=== PATIENT | female | born 1940 | race American Indian/Alaskan Native ===

== ENCOUNTER 2016-12-22 02:05 | Inpatient (IN) | payer MEDICARE ==
[2016-12-22 03:16] LABS: Urine Drugs of Abuse Note Disclamer
[2016-12-22 03:24] LABS: Bilirubin,Urine NEG (Negative); Blood,Urine NEG (Negative); Ketones,Urine TR mg/dL (Negative); Leukocyte Esterase,Urine NEG (Negative); Mucus,Urine FEW /HPF; Nitrite,Urine NEG (Negative); Urobilinogen,Urine < 2.0 mg/dL (<2.0)
[2016-12-22 04:01] LABS: Alanine Aminotransferase 25 units/L (7-56); Albumin 4.3 g/dL (3.9-5); Albumin/Globulin Ratio 1.1 %; Alkaline Phosphatase 69 units/L (35-129); Anion Gap 16 mmol/L; Blood Urea Nitrogen 22 mg/dL (7-17); Calcium 9.1 mg/dL (8.4-10.2); Carbon Dioxide 26 mmol/L (22-30); Chloride 102.3 mmol/L (98-107); Glucose 121 mg/dL (65-100); Sodium 141 mmol/L (137-145); Total Protein 8.2 g/dL (6.3-8.2)
[2016-12-22 04:09] LABS: Potassium 2.9 mmol/L (3.6-5.0)
[2016-12-22 04:17] LABS: Basophils % (Auto) 0.8 % (0.0-1.8); Eosinophils % (Auto) 2.1 % (0.0-4.3); Hematocrit 37.8 % (30.3-42.9); Hemoglobin 12.5 gm/dl (10.1-14.3); Mean Corpuscular HGB Conc 33 % (30-34); Mean Corpuscular Hemoglobin 30 pg (28-32); Mean Corpuscular Volume 89 fl (79-97); Platelet Count 280 K/mm3 (140-440); Red Blood Count 4.23 M/mm3 (3.65-5.03); Red Cell Distribution Width 15.8 % (13.2-15.2); White Blood Count 5.8 K/mm3 (4.5-11.0)
--- NOTE | 2016-12-22 04:19 | Cat Scan Report ---
FINAL REPORT PROCEDURE: CT HEAD/BRAIN WO CON TECHNIQUE: Computerized tomography of the head was performed without contrast material. HISTORY: ams COMPARISON: No prior studies are available for comparison. FINDINGS: Skull and scalp: Normal. Paranasal sinuses: Normal. Ventricles and subarachnoid spaces: There is mild central and cortical atrophy. There is no hydrocephalus.. Cerebrum: No evidence of hemorrhage, acute infarction or mass . Cerebellum and brainstem: No evidence of hemorrhage, acute infarction or mass. Vasculature: Normal. Comments: There is chronic deep white matter ischemic gliosis.. IMPRESSION: There are chronic involutional changes. There is no acute abnormality.
--- NOTE | 2016-12-22 06:23 | Emergency Department Report ---
ED General Adult HPI - General Chief complaint: Altered Mental Status Stated complaint: TC THOMPSON Time Seen by Provider: 12/22/16 06:20 Source: patient Mode of arrival: Ambulatory Limitations: Altered Mental Status - History of Present Illness Initial comments: As I understand it the patient was dropped off by her son for evaluation. The son stated that the patient had been wandering. She had previously gotten lost and the police picked her up and escorted her home. She presented formally to triage. She had no specific complaints. On my encounter she continues to have no specific complaints. However, according to the triage note the patient states "we have mice" and sore one running across the floor. She also stated they were black in triage. Apparently she has been suffering from visual hallucinosis. I am not certain as to the acuity of the symptoms. The family will be contacted by case management later. At this time the patient is quite coherent. She has no complaints. She was found at the bedside trying to remove her monitoring equipment. -: unknown Severity scale (0 -10): 0 Consistency: intermittent Improves with: none Worsens with: none Associated Symptoms: denies other symptoms - Related Data Home Medications Medication Instructions Recorded Confirmed Last Taken amLODIPine [Norvasc] 10 mg PO DAILY 12/22/16 12/22/16 Unknown Allergies Allergy/AdvReac Type Severity Reaction Status Date / Time No Known Allergies Allergy Verified 01/02/14 07:09 ED Review of Systems ROS: Stated complaint: TC THOMPSON Other details as noted in HPI Constitutional: denies: chills, fever Eyes: denies: eye pain, eye discharge, vision change ENT: denies: ear pain, throat pain Respiratory: denies: cough, shortness of breath, wheezing Cardiovascular: denies: chest pain, palpitations Endocrine: no symptoms reported Gastrointestinal: denies: abdominal pain, nausea, diarrhea Genitourinary: denies: urgency, dysuria, discharge Musculoskeletal: denies: back pain, joint swelling, arthralgia Skin: denies: rash, lesions Neurological: denies: headache, weakness, paresthesias Psychiatric: as per HPI, homicidal thoughts. denies: anxiety, depression Hematological/Lymphatic: denies: easy bleeding, easy bruising ED Past Medical Hx - Past Medical History Hx Hypertension: Yes Hx Asthma: No Hx COPD: No - Surgical History Additional Surgical History: colonoscopy. Resection of a rectal carcinoma - Social History Smoking Status: Never Smoker Substance Use Type: None - Medications Home Medications: Home Medications Medication Instructions Recorded Confirmed Last Taken Type amLODIPine [Norvasc] 10 mg PO DAILY 12/22/16 12/22/16 Unknown History ED Physical Exam - General Limitations: No Limitations General appearance: alert, in no apparent distress - Head Head exam: Present: atraumatic, normocephalic - Eye Eye exam: Present: normal appearance, PERRL, EOMI. Absent: scleral icterus - ENT ENT exam: Present: mucous membranes moist - Neck Neck exam: Present: normal inspection. Absent: tenderness, meningismus - Respiratory Respiratory exam: Present: normal lung sounds bilaterally. Absent: respiratory distress - Cardiovascular Cardiovascular Exam: Present: regular rate, normal rhythm. Absent: systolic murmur, diastolic murmur, rubs, gallop - GI/Abdominal GI/Abdominal exam: Present: soft, normal bowel sounds. Absent: distended, tenderness, guarding, rebound, rigid - Extremities Exam Extremities exam: Present: normal inspection - Back Exam Back exam: Present: normal inspection - Neurological Exam Neurological exam: Present: alert, oriented X3, CN II-XII intact. Absent: motor sensory deficit - Psychiatric Psychiatric exam: Present: normal affect, normal mood - Skin Skin exam: Present: warm, dry, intact, normal color. Absent: rash ED Course Vital Signs 12/22/16 12/22/16 12/22/16 02:42 04:53 05:01 Temperature 98.4 F Pulse Rate 76 65 63 Respiratory 17 17 15 Rate Blood Pressure 133/84 134/97 O2 Sat by Pulse 100 98 98 Oximetry 12/22/16 05:17 Temperature Pulse Rate Respiratory 18 Rate Blood Pressure O2 Sat by Pulse 99 Oximetry - Reevaluation(s) Reevaluation #1: Patient did improve some with Chani. I discussed her case with mental health and the social media job titles. The patient is a danger to herself. She has active visual hallucinosis and is somewhat paranoid. While these symptoms may be related to dementia, she also does have a history of rectal carcinoma. I think perhaps an MRI would be reasonable. Patient's potassium is low. She has medical indications for admission. It is not unlikely that she will require [facility] for Alzheimer's unit placement if her final diagnosis is such. 12/22/16 12:27 Reevaluation #2: I spoke to who agreed to admit the patient to the hospitalist service. I informed the charge nurse that she will need a sitter. I will executed a 1013 at this time. 12/22/16 12:30 ED Medical Decision Making - Lab Data Result diagrams: 12/22/16 03:18 12/22/16 03:18 Laboratory Results - last 24 hr 12/22/16 12/22/16 12/22/16 02:50 02:50 03:18 WBC 5.8 RBC 4.23 Hgb 12.5 Hct 37.8 MCV 89 MCH 30 MCHC 33 RDW 15.8 H Plt Count 280 Lymph % (Auto) 29.5 Cooper % (Auto) 10.5 H Eos % (Auto) 2.1 Baso % (Auto) 0.8 Lymph # 1.7 Cooper # 0.6 Eos # 0.1 Baso # 0.0 Seg Neutrophils % 57.1 Seg Neutrophils # 3.3 Sodium Potassium Chloride Carbon Dioxide Anion Gap BUN Creatinine Estimated GFR BUN/Creatinine Ratio Glucose Lactic Acid Calcium Magnesium Total Bilirubin AST ALT Alkaline Phosphatase Total Protein Albumin Albumin/Globulin Ratio TSH Urine Color Yellow Urine Turbidity Clear Urine pH 5.0 Ur Specific Sterling 1.029 Urine Protein 100 mg/dl Urine Glucose (UA) Neg Urine Ketones Tr Urine Blood Neg Urine Nitrite Neg Urine Bilirubin Neg Urine Urobilinogen < 2.0 Ur Leukocyte Esterase Neg Urine WBC (Auto) 3.0 Urine RBC (Auto) 6.0 U Epithel Cells (Auto) 6.0 Urine Mucus Few Salicylates Urine Opiates Screen Presumptive negative Urine Methadone Screen Presumptive negative Acetaminophen Ur Barbiturates Screen Presumptive positive Ur Phencyclidine Scrn Presumptive negative Ur Amphetamines Screen Presumptive negative U Benzodiazepines Scrn Presumptive negative Urine Cocaine Screen Presumptive negative U Marijuana (THC) Screen Presumptive negative Drugs of Abuse Note Disclamer Plasma/Serum Alcohol 12/22/16 12/22/16 12/22/16 03:18 03:18 03:18 WBC RBC Hgb Hct MCV MCH MCHC RDW Plt Count Lymph % (Auto) Cooper % (Auto) Eos % (Auto) Baso % (Auto) Lymph # Cooper # Eos # Baso # Seg Neutrophils % Seg Neutrophils # Sodium 141 Potassium 2.9 L* Chloride 102.3 Carbon Dioxide 26 Anion Gap 16 BUN 22 H Creatinine 0.8 Estimated GFR > 60 BUN/Creatinine Ratio 27.50 Glucose 121 H Lactic Acid 0.70 Calcium 9.1 Magnesium 2.40 H Total Bilirubin 0.20 AST 44 H ALT 25 Alkaline Phosphatase 69 Total Protein 8.2 Albumin 4.3 Albumin/Globulin Ratio 1.1 TSH 1.230 Urine Color Urine Turbidity Urine pH Ur Specific Sterling Urine Protein Urine Glucose (UA) Urine Ketones Urine Blood Urine Nitrite Urine Bilirubin Urine Urobilinogen Ur Leukocyte Esterase Urine WBC (Auto) Urine RBC (Auto) U Epithel Cells (Auto) Urine Mucus Salicylates Urine Opiates Screen Urine Methadone Screen Acetaminophen Ur Barbiturates Screen Ur Phencyclidine Scrn Ur Amphetamines Screen U Benzodiazepines Scrn Urine Cocaine Screen U Marijuana (THC) Screen Drugs of Abuse Note Plasma/Serum Alcohol 12/22/16 12/22/16 12/22/16 03:18 03:18 03:18 WBC RBC Hgb Hct MCV MCH MCHC RDW Plt Count Lymph % (Auto) Cooper % (Auto) Eos % (Auto) Baso % (Auto) Lymph # Cooper # Eos # Baso # Seg Neutrophils % Seg Neutrophils # Sodium Potassium Chloride Carbon Dioxide Anion Gap BUN Creatinine Estimated GFR BUN/Creatinine Ratio Glucose Lactic Acid Calcium Magnesium Total Bilirubin AST ALT Alkaline Phosphatase Total Protein Albumin Albumin/Globulin Ratio TSH Urine Color Urine Turbidity Urine pH Ur Specific Sterling Urine Protein Urine Glucose (UA) Urine Ketones Urine Blood Urine Nitrite Urine Bilirubin Urine Urobilinogen Ur Leukocyte Esterase Urine WBC (Auto) Urine RBC (Auto) U Epithel Cells (Auto) Urine Mucus Salicylates 7.4 Urine Opiates Screen Urine Methadone Screen Acetaminophen < 15.0 Ur Barbiturates Screen Ur Phencyclidine Scrn Ur Amphetamines Screen U Benzodiazepines Scrn Urine Cocaine Screen U Marijuana (THC) Screen Drugs of Abuse Note Plasma/Serum Alcohol < 0.01 - EKG Data -: EKG Interpreted by Me EKG shows normal: sinus rhythm Rate: normal - EKG Data Interpretation: nonspecific ST-T wave wyatt, other (LAD) - Radiology Data Radiology results: report reviewed (NAF) interpreted by me: CT head No acute process. Critical care attestation.: If time is entered above; I have spent that time in minutes in the direct care of this critically ill patient, excluding procedure time. ED Disposition Clinical Impression: Hypokalemia, Hallucinosis Dementia Qualifiers: Dementia type: unspecified type Dementia behavioral disturbance: with behavioral disturbance Qualified Code(s): F03.91 - Unspecified dementia with behavioral disturbance Altered mental status Qualifiers: Altered mental status type: delirium Qualified Code(s): R41.0 - Disorientation , unspecified Disposition: DC-09 OP ADMIT IP TO THIS HOSP Is pt being admited?: Yes Does the pt Need Aspirin: Yes Condition: Stable Referrals: PRIMARY CARE, [Primary Care Provider] - 3-5 Days Time of Disposition: 12:30
[2016-12-22] MEDS ORDERED: K-DUR PO ONE (06:25)
[2016-12-22] MEDS ORDERED: GEODON IM ONE ×2 (07:43)
[2016-12-22] MEDS ORDERED: WATER FOR INJ (PF) 10 ML ONE ×2 (07:43→21:53)
[2016-12-22] MEDS ORDERED: BABY ASPIRIN PO ONE (12:30)
--- NOTE | 2016-12-22 12:36 | Admit Criteria Form ---
Admission Criteria Documentation: MENTAL STATUS CHANGE Clinical Indications for Inpatient Care (Place 'X' for any and all applicable criteria): Ongoing inpatient care may be needed for 1 or more of the following(1)(2)(3)(5)( 6): [ ]I. Suspected serious etiology (eg, medical disorder, [employer]ACHINE event) of altered mental status [ ]II. Danger to self or others not manageable at lower level of care [ ]III. Grave disability (eg, inability to perform self care necessary at lower level of care) [ ]IV. Agitation or inappropriate behavior interfering with care for primary condition (eg, attempting to discontinue lines or drains prematurely, unable to cooperate with respiratory care) [ ]V. Delirium [A] [D][E] as described by 1 or more of the following(26): [ ]a) Delirium due to alcohol or sedative [F] withdrawal [ ]b) Delirium of uncertain etiology that has not responded to appropriate empiric treatment [ ]c) Delirium that prevents performance of a life-sustaining function (eg, feeding or hydrating oneself) [X ]. General contraindications and/or Inappropriate clinical situations for Observational Care in patients with Mental Status Change, when ANY ONE of the following is required: [X ]a) Prediction of prolongation of LOS based on ANY ONE of the following may be considered as a contraindication for observational care 2, 3, 4, 5, 6, 7, 8, 9, 10, 11 [X ]i) Age > 65 yrs. [ ]ii) Patient arriving by ambulance [ ]iii) Patient with high acuity [ ]iv) Patient requiring vital sign monitoring [ ]v) Patient on IV medication [ ]b) Systolic blood pressures greater than or equal to 180mmHg 3, 12 [ ]c) Patient with altered mental status including delirium and other alteration of consciousness, (3) [ ]d) Patient whose discharge disposition will be to a retirement home or rehabilitation home should not be managed in Emergency Department Observation Unit. CMS rule requires 3 days hospital stay before such placement.3,13 [ ]e) Patient with failure to thrive due to broad array of etiologies 3,16,17 [ ]f) Inability to ambulate 3,14 Extended stay beyond goal length of stay for the primary condition may be needed until ALL of the following are present(3)(5): [ ]a) Underlying medical etiology of mental status change is absent, or has been established and adequately treated [ ]b) Danger to self or others is absent or manageable at lower level of care. [ ]c) Behavior crisis management, including physical or chemical restraints, is not required or available at lower level of car [ ]d) Substance or alcohol withdrawal is absent or manageable at lower level of care. [ ]e) Behavioral symptoms (eg, agitation, somnolence, inappropriate behavior) are absent, or are manageable at lower level of care. The original [facility] content created by [facility] has been revised. The portions of the content which have been revised are identified through the use of italic text or in bold, and [facility] has neither reviewed nor approved the modified material. All other unmodified content is copyright [facility]. Please see references footnoted in the original [facility] edition 2016 Admission Criteria Met: Yes
[2016-12-22] MEDS ORDERED: PEPCID ONE (16:03)
--- NOTE | 2016-12-22 18:10 | Consultation ---
History of Present Illness - Reason for Consult Consult date: 12/22/16 Reason for consult: altered mental status - Chief Complaint Chief complaint: "I'm tired" 76 year old female seen in the ER for aggression/behavioral disturbance. Her son brought her and was available for collateral. The son stated that the patient had been wandering. She had previously gotten lost and the police picked her up and escorted her home. Apparently she has been suffering from visual hallucinosis.Since arrival, she has hit a security office and wandered out of room several times. She has been taking her monitoring equipment off. She admits to depression in the last year and reports visual hallucinations "since I was born." She reports seeing people and seeing the floor open. Her thought process is disorganized and her memory is impaired. Her son reports she has been showing signs of memory loss for 10 years but in the past 5 years, it has become worse. The current symptoms have worsened even more since 12/14/16. She lives alone. She does not cook and has to be reminded to eat. She loses her way home. She sleeps in the day and is awake at night. She has been writing on the chen and responding to internal stimuli. She had neuropsych testing. He son reports her score was "23/80." He is prepared to have her admitted to a retirement facility for her safety. - Past Medical History Hx Hypertension: Yes Hx Asthma: No Hx COPD: No - Surgical History Additional Surgical History: colonoscopy. Resection of a rectal carcinoma - Social History Smoking Status: Never Smoker Substance Use Type: None Her occupation was construction driller her son is her support-Roderick Ty [phone] Medications and Allergies Allergies Allergy/AdvReac Type Severity Reaction Status Date / Time No Known Allergies Allergy Verified 01/02/14 07:09 Home Medications Medication Instructions Recorded Confirmed Last Taken Type amLODIPine [Norvasc] 10 mg PO DAILY 12/22/16 12/22/16 Unknown History Active Meds: Active Medications Ziprasidone (Geodon) 5 mg IM Q12H PRN PRN Reason: Agitation Stop: 12/24/16 00:41 Past psychiatric history - past Psychiatric treatment and history psychiatric treatment history: thinks she might have taken a medication for depression. Mental Status Exam - Vital signs Last Vital Signs Temp 98.4 F 12/22/16 02:42 Pulse 99 H 07/12/17 06:51 Resp 22 12/22/16 06:51 BP 165/105 12/22/16 07:00 Pulse Ox 99 12/22/16 07:00 - Exam Orientation: place, person Affect: anxious Mood: congruent with affect Thought content: other (no SI no HI) Thought Process: Disorganized Perceptions: visual Speech: normal rate and pattern Concentration: unable to pay attention Motor activity: agitated Level of consciousness: confused Memory: Recent Impaired Sleep Symptoms: Insomnia Appetite: decreased Interaction: other (intermittently cooperative) Results Result Diagrams: 12/22/16 03:18 12/22/16 03:18 All other labs normal. Assessment and Plan Assessment and plan: Impression: Dementia with behavioral disturbance consider delirium, although the presentation is more consistent with dementia Hypokalemia is being treated by the medical team depression is likely but she cannot describe symptoms. No SI, no HI. Insomnia present Recommendation: She would likely benefit from treatment in a retirement facility. This will take time and her behavior is intermittently aggressive We will address the insomnia and depression with remeron 7.5mg hs. The visual hallucinations may be a result of sleep deprivation/delirium or neurocognitive disorder. Therefore an antipsychotic will not be started at this time. Consider inpatient psychiatry/geriatric unit for further stabilization The following recommendation will help reorient her to her environment: 1. Frequently reorient patient and involve him/her in their care (simple explanations of procedures, tests, medications). 2. Lights on and shades open during daytime hours. 3. Try to avoid unnecessary interruptions to sleep during nighttime hours. 4. Obtain glasses, hearing aids from home if patient uses these at baseline. 5. Avoid medications that may exacerbate delirium (especially narcotics, benzodiazepines, barbiturates, ambien, lunesta, and medications with excessive anticholinergic properties).
[2016-12-22] MEDS ORDERED: REMERON PO SCH (22:00)
[2016-12-22] MEDS: GEODON IM PRN (22:51)
--- NOTE | 2016-12-22 23:57 | History and Physical Report ---
History of Present Illness Date of examination: 12/22/16 Date of admission: 12/22/16 12:36 Chief complaint: Altered sensorium per son Visual Hallucinations per son. Wandering away from house History of present illness: IKER: 76 year old female seen in the ER for aggression/behavioral disturbance. Her son brought her and was available for collateral. The son stated that the patient had been wandering. She had previously gotten lost and the police picked her up and escorted her home. Apparently she has been suffering from visual hallucinosis.Since arrival, she has hit a security office and wandered out of room several times. She has been taking her monitoring equipment off. She admits to depression in the last year and reports visual hallucinations "since I was born." She reports seeing people and seeing the floor open. Her thought process is disorganized and her memory is impaired. Her son reports she has been showing signs of memory loss for 10 years but in the past 5 years, it has become worse. The current symptoms have worsened even more since 12/14/16. She lives alone. She does not cook and has to be reminded to eat. She loses her way home. She sleeps in the day and is awake at night. She has been writing on the chen and responding to internal stimuli. She had neuropsych testing. He son reports her score was "23/80." He is prepared to have her admitted to a longterm facility for her safety. - Past Medical History Hx Hypertension: Yes Hx Asthma: No Hx COPD: No - Surgical History Additional Surgical History: colonoscopy. 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 son is her support-Roderick Ty [phone] Medications and Allergies Allergies Allergy/AdvReac Type Severity Reaction Status Date / Time No Known Allergies Allergy Verified 01/02/14 07:09 Home Medications Medication Instructions Recorded Confirmed Last Taken Type amLODIPine [Norvasc] 10 mg PO DAILY 12/22/16 12/22/16 Unknown History Past psychiatric history - past Psychiatric treatment and history psychiatric treatment history: thinks she might have taken a medication for depressio ROS: Constitutional: denies: chills, fever Eyes: denies: eye pain, eye discharge, vision change ENT: denies: ear pain, throat pain Respiratory: denies: cough, shortness of breath, wheezing Cardiovascular: denies: chest pain, palpitations Endocrine: no symptoms reported Gastrointestinal: denies: abdominal pain, nausea, diarrhea Genitourinary: denies: urgency, dysuria, discharge Musculoskeletal: denies: back pain, joint swelling, arthralgia Skin: denies: rash, lesions Neurological: denies: headache, weakness, paresthesias Psychiatric: as per HPI, homicidal thoughts. denies: anxiety, depression Hematological/Lymphatic: denies: easy bleeding, easy bruising Medications and Allergies Allergies Allergy/AdvReac Type Severity Reaction Status Date / Time No Known Allergies Allergy Verified 01/02/14 07:09 Home Medications Medication Instructions Recorded Confirmed Last Taken Type amLODIPine [Norvasc] 10 mg PO DAILY 12/22/16 12/22/16 Unknown History Active Meds: Active Medications Famotidine (Pepcid) 20 mg PO QDAY ASIM Mirtazapine (Remeron) 7.5 mg PO QHS ASIM Last Admin: 12/22/16 21:09 Dose: 7.5 mg Ziprasidone (Geodon) 5 mg IM Q12H PRN PRN Reason: Agitation Stop: 12/24/16 00:41 Exam - Physical Exam Narrative exam: Lying comfortably. - Constitutional Vitals: Temp Pulse Resp BP Pulse Ox 98.3 F 79 14 134/69 100 12/22/16 23:00 12/22/16 23:00 12/22/16 23:00 12/22/16 23:00 12/22/16 23:00 General appearance: Present: no acute distress, well-nourished - EENT Eyes: Present: PERRL ENT: hearing intact, clear oral mucosa - Neck Neck: Present: supple, normal ROM - Respiratory Respiratory effort: normal Respiratory: bilateral: CTA - Cardiovascular Heart Sounds: Present: S1 & S2. Absent: rub, click - Extremities Extremities: pulses symmetrical, No edema Peripheral Pulses: within normal limits - Abdominal General gastrointestinal: Present: soft, non-tender, non-distended, normal bowel sounds Female genitourinary: Present: normal - Integumentary Integumentary: Present: clear, warm, dry - Musculoskeletal Musculoskeletal: gait normal, strength equal bilaterally - Psychiatric Psychiatric: appropriate mood/affect, intact judgment & insight - Neurologic Neurologic: CNII-XII intact, moves all extremities Results - Labs CBC & Chem 7: 12/22/16 03:18 12/22/16 03:18 Labs: Laboratory Last Values WBC 5.8 K/mm3 (4.5-11.0) 12/22/16 03:18 RBC 4.23 M/mm3 (3.65-5.03) 12/22/16 03:18 Hgb 12.5 gm/dl (10.1-14.3) 12/22/16 03:18 Hct 37.8 % (30.3-42.9) 12/22/16 03:18 MCV 89 fl (79-97) 12/22/16 03:18 MCH 30 pg (28-32) 12/22/16 03:18 MCHC 33 % (30-34) 12/22/16 03:18 RDW 15.8 % (13.2-15.2) H 12/22/16 03:18 Plt Count 280 K/mm3 (140-440) 12/22/16 03:18 Lymph % (Auto) 29.5 % (13.4-35.0) 12/22/16 03:18 [place] % (Auto) 10.5 % (0.0-7.3) H 12/22/16 03:18 Eos % (Auto) 2.1 % (0.0-4.3) 12/22/16 03:18 Baso % (Auto) 0.8 % (0.0-1.8) 12/22/16 03:18 Lymph # 1.7 K/mm3 (1.2-5.4) 12/22/16 03:18 [place] # 0.6 K/mm3 (0.0-0.8) 12/22/16 03:18 Eos # 0.1 K/mm3 (0.0-0.4) 12/22/16 03:18 Baso # 0.0 K/mm3 (0.0-0.1) 12/22/16 03:18 Seg Neutrophils % 57.1 % (40.0-70.0) 12/22/16 03:18 Seg Neutrophils # 3.3 K/mm3 (1.8-7.7) 12/22/16 03:18 Sodium 141 mmol/L (137-145) 12/22/16 03:18 Potassium 2.9 mmol/L (3.6-5.0) L* 12/22/16 03:18 Chloride 102.3 mmol/L (98-107) 12/22/16 03:18 Carbon Dioxide 26 mmol/L (22-30) 12/22/16 03:18 Anion Gap 16 mmol/L 12/22/16 03:18 BUN 22 mg/dL (7-17) H 12/22/16 03:18 Creatinine 0.8 mg/dL (0.7-1.2) 12/22/16 03:18 Estimated GFR > 60 ml/min 12/22/16 03:18 BUN/Creatinine Ratio 27.50 % 12/22/16 03:18 Glucose 121 mg/dL (65-100) H 12/22/16 03:18 Lactic Acid 0.70 mmol/L (0.7-2.0) 12/22/16 03:18 Calcium 9.1 mg/dL (8.4-10.2) 12/22/16 03:18 Magnesium 2.40 mg/dL (1.7-2.3) H 12/22/16 03:18 Total Bilirubin 0.20 mg/dL (0.1-1.2) 12/22/16 03:18 AST 44 units/L (5-40) H 12/22/16 03:18 ALT 25 units/L (7-56) 12/22/16 03:18 Alkaline Phosphatase 69 units/L (35-129) 12/22/16 03:18 Total Protein 8.2 g/dL (6.3-8.2) 12/22/16 03:18 Albumin 4.3 g/dL (3.9-5) 12/22/16 03:18 Albumin/Globulin Ratio 1.1 % 12/22/16 03:18 TSH 1.230 mlU/mL (0.270-4.200) 12/22/16 03:18 Urine Color Yellow (Yellow) 12/22/16 02:50 Urine Turbidity Clear (Clear) 12/22/16 02:50 Urine pH 5.0 (5.0-7.0) 12/22/16 02:50 Ur Specific [place] 1.029 (1.003-1.030) 12/22/16 02:50 Urine Protein 100 mg/dl mg/dL (Negative) 12/22/16 02:50 Urine Glucose (UA) Neg mg/dL (Negative) 12/22/16 02:50 Urine Ketones Tr mg/dL (Negative) 12/22/16 02:50 Urine Blood Neg (Negative) 12/22/16 02:50 Urine Nitrite Neg (Negative) 12/22/16 02:50 Urine Bilirubin Neg (Negative) 12/22/16 02:50 Urine Urobilinogen < 2.0 mg/dL (<2.0) 12/22/16 02:50 Ur Leukocyte Esterase Neg (Negative) 12/22/16 02:50 Urine WBC (Auto) 3.0 /HPF (0.0-6.0) 12/22/16 02:50 Urine RBC (Auto) 6.0 /HPF (0.0-6.0) 12/22/16 02:50 U Epithel Cells (Auto) 6.0 /HPF (0-13.0) 12/22/16 02:50 Urine Mucus Few /HPF 12/22/16 02:50 Salicylates 7.4 mg/dL (2.8-20.0) 12/22/16 03:18 Urine Opiates Screen Presumptive negative 12/22/16 02:50 Urine Methadone Screen Presumptive negative 12/22/16 02:50 Acetaminophen < 15.0 ug/mL (10.0-30.0) 12/22/16 03:18 Ur Barbiturates Screen Presumptive positive 12/22/16 02:50 Ur Phencyclidine Scrn Presumptive negative 12/22/16 02:50 Ur Amphetamines Screen Presumptive negative 12/22/16 02:50 U Benzodiazepines Scrn Presumptive negative 12/22/16 02:50 Urine Cocaine Screen Presumptive negative 12/22/16 02:50 U Marijuana (THC) Screen Presumptive negative 12/22/16 02:50 Drugs of Abuse Note Disclamer 12/22/16 02:50 Plasma/Serum Alcohol < 0.01 gm% (0-0.07) 12/22/16 03:18 - Imaging and Cardiology EKG: report reviewed Assessment and Plan Advance Directives: Yes (FC) VTE prophylaxis?: Chemical Plan of care discussed with patient/family: Yes - Patient Problems (1) Hypokalemia Current Visit: Yes Status: Acute Plan to address problem: Supplemented Not on any diuretics (2) Dementia associated with other underlying disease Current Visit: Yes Status: Chronic Qualifiers: Dementia behavioral disturbance: with behavioral disturbance Qualified Code (s): F02.81 - Dementia in other diseases classified elsewhere with behavioral disturbance Plan to address problem: Severe agitation and and wandering away from her place .No safety for her (3) Encephalopathy acute Current Visit: Yes Status: Acute Plan to address problem: sec to dementia with agitation.Patient started on Geodon by Psych call center consultant (4) HTN (hypertension) Current Visit: Yes Status: Chronic Qualifiers: Hypertension type: essential hypertension Qualified Code(s): I10 - Essential (primary) hypertension Plan to address problem: cont Amlodipine (5) DVT prophylaxis Current Visit: Yes Status: Acute Plan to address problem: on lovenox (6) Discharge planning issues Current Visit: Yes Status: Acute Plan to address problem: Patient will need SNF and son agrees about it.D/w son at length.
[2016-12-23] MEDS ORDERED: K-DUR PO SCH (07:00)
[2016-12-23 09:16] LABS: Anion Gap 16 mmol/L; BUN/Creatinine Ratio 16.25; Blood Urea Nitrogen 13 mg/dL (7-17); Calcium 9.2 mg/dL (8.4-10.2); Carbon Dioxide 25 mmol/L (22-30); Chloride 105.3 mmol/L (98-107); Glucose 122 mg/dL (65-100); Potassium 3.2 mmol/L (3.6-5.0); Sodium 143 mmol/L (137-145)
[2016-12-23] MEDS ORDERED: PEPCID PO SCH (10:00)
[2016-12-23] MEDS ORDERED: NORVASC PO SCH (10:00)
--- NOTE | 2016-12-23 10:34 | Discharge Summary ---
Providers - Providers Date of Admission: 12/22/16 12:36 Date of discharge: 12/23/16 Attending physician: AHMET MCFARLANE MD Primary care physician: PHYSICIAN OFFICE REP Hospitalization Reason for admission: altered mental status Condition: Stable Hospital course: Patient is a 76 year old female seen in the ER for aggression/behavioral disturbance, with hallucination tangential thought process. Family states that this has been going on since the last 10 years and the sense of memory loss but in the 5 years ago has become worse. Since December 14 the patient had major breakdown. She unfortunately has been wandering away from home having visual hallucination was found by police as she has previously gotten lost, he was admitted to the hospital due to hypokalemia and hypertension. She was corrected with potassium and blood pressure was evaluated and now corrected. She was followed on lisinopril. The patient was seen by psychiatrist and believes that inpatient management was appropriate. The patient is medically stable at this time for transfer to inpatient psych thank you (1) Hypokalemia (2) Dementia associated with other underlying disease (3) acute encephalopathy secondary to acute psychosis (4) acute psychosis with behavioral disturbance or visual hallucination (4) HTN (hypertension) Disposition: [id number]/TX-[id number] PSY HOSP/PSY UNIT Time spent for discharge: 35 mins Core Measure Documentation - Palliative Care Palliative Care/ Comfort Measures: Not Applicable - Core Measures Any of the following diagnoses?: none - VTE Discharge Requirements Deep Vein Thrombosis/Pulmonary Embolism Present on Admission: No Exam - Physical Exam Narrative exam: VITAL SIGNS: Reviewed. GENERAL: The patient appeared well nourished and normally developed. Vital signs as documented. HEAD: No signs of head trauma. EYES: Pupils are equal. Extraocular motions intact. EARS: Hearing grossly intact. MOUTH: Oropharynx is normal. NECK: No adenopathy, no JVD. CHEST: Chest with clear breath sounds bilaterally. No wheezes, rales, or rhonchi. CARDIAC: Regular rate and rhythm. S1 and S2, without murmurs, gallops, or rubs. VASCULAR: No Edema. Peripheral pulses normal and equal in all extremities. ABDOMEN: Soft, without detectable tenderness. No sign of distention. No rebound or guarding, and no masses palpated. Bowel Sounds normal. MUSCULOSKELETAL: Good range of motion of all major joints. Extremities without clubbing, cyanosis or edema. NEUROLOGIC EXAM: Alert and oriented x 3. No focal sensory or strength deficits. Speech normal but with flight of ideas. Follows commands. PSYCHIATRIC: Mood irrational. SKIN: No rash or lesions. - Constitutional Vitals: Temp Pulse Resp BP Pulse Ox 98.1 F 107 H 97 H 164/84 100 12/23/16 07:00 12/23/16 07:00 12/23/16 07:00 12/23/16 07:00 12/22/16 23:00 Plan Activity: advance as tolerated, fall precautions Diet: low salt Special Instructions: record daily BP diary Follow up with: PRIMARY CARE, [Primary Care Provider] - 3-5 Days Prescriptions: Mirtazapine [Remeron] 7.5 mg PO QHS #30 tablet Famotidine [Pepcid] 20 mg PO QDAY #30 tablet Lisinopril [Zestril TAB] 10 mg PO QDAY #30 tablet
[2016-12-23] MEDS ORDERED: WATER FOR INJ (PF) 10 ML ONE (10:53)
[2016-12-23] MEDS ORDERED: K-DUR PO ONE (11:00)
[2016-12-23] MEDS: GEODON IM PRN (11:01)
--- NOTE | 2016-12-23 11:18 | Progress Note ---
Subjective - Reason for Consult Consult date: 12/23/16 Reason for consult: Psychiatry Follow-up - Chief Complaint Chief complaint: "Hello to you" 76 year old female seen in the ER for aggression/behavioral disturbance. Today patient is calm, but disorganized with a tangential thought process. During our conversation, patient had to be redirected multiple times possibly responding to internal stimuli. Her son was present Roderick Ty and he stated this has been his mother's behaviors for the past couple weeks. He stated that her mental state has declined. Patient could not confirm or deny if she is SI/HI. Her son stated that his mom have never stated being SI/HI's in the past. Per the staff, patient did not sleep well last night. Mental Status Exam - Vital signs Last Vital Signs Temp 98.1 F 12/23/16 07:00 Pulse 107 H 12/23/16 07:00 Resp 97 H 12/23/16 07:00 BP 164/84 12/23/16 07:00 Pulse Ox 100 12/22/16 23:00 - Exam Narrative exam: MSE: Appearance: calm, cooperative Behavior: good eye contact, disorganized Speech: regular rate and tone Mood: "I am okay" Affect: labile Thought Process: tangential Thought Content: denies SI/HI's and AVH's, delusional Motor Activity: ambulatory Cognition: A/Ox 1 Insight: poor Judgment: poor Assessment and Plan Impression: Dementia with behavioral disturbance, consider delirium, although the presentation is more consistent with dementia. Today patient is calm, but disorganized with a tangential thought process. Potassium level trending up 3.2. Recommendation: She would likely benefit from treatment in a [place] [facility] facility. This will take time and her behavior is intermittently aggressive. Continue Remeron 7.5mg PO HS for sleep consolidation. Patient pending [facility] to [facility]. The following recommendation will help reorient her to her environment: 1. Frequently reorient patient and involve him/her in their care (simple explanations of procedures, tests, medications). 2. Lights on and shades open during daytime hours. 3. Try to avoid unnecessary interruptions to sleep during nighttime hours. 4. Obtain glasses, hearing aids from home if patient uses these at baseline. 5. Avoid medications that may exacerbate delirium (especially narcotics, benzodiazepines, barbiturates, ambien, lunesta, and medications with excessive anticholinergic properties). 6. Haldol 2mg IM Q6hrs prn for physical agitation.
[2016-12-23] MEDS ORDERED: HALDOL IM PRN (15:05)
--- NOTE | 2016-12-23 15:16 | Progress Note ---
Assessment and Plan Assessment and plan: Patient is a 76 year old female seen in the ER for aggression/behavioral disturbance, with hallucination tangential thought process. Family states that this has been going on since the last 10 years and the sense of memory loss but in the 5 years ago has become worse. Since December 14 the patient had major breakdown. She unfortunately has been wandering away from home having visual hallucination was found by police as she has previously gotten lost, he was admitted to the hospital due to hypokalemia and hypertension. She was corrected with potassium and blood pressure was evaluated and now corrected. She was followed on lisinopril. The patient was seen by psychiatrist and believes that inpatient management was appropriate. The patient is medically stable at this time for transfer to inpatient psych thank you (1) Hypokalemia Current Visit: Yes Status: Acute Plan to address problem: Supplemented Not on any diuretics (2) Dementia associated with other underlying disease Current Visit: Yes Status: Chronic Qualifiers: Dementia behavioral disturbance: with behavioral disturbance Qualified Code (s): F02.81 - Dementia in other diseases classified elsewhere with behavioral disturbance Plan to address problem: Severe agitation and and wandering away from her place .No safety for her (3) Encephalopathy acute Current Visit: Yes Status: Acute Plan to address problem: sec to dementia with agitation.Patient started on Geodon by Psych statistical consultant (4) HTN (hypertension) Current Visit: Yes Status: Chronic Qualifiers: Hypertension type: essential hypertension Qualified Code(s): I10 - Essential (primary) hypertension Plan to address problem: cont Amlodipine (5) DVT prophylaxis Current Visit: Yes Status: Acute Plan to address problem: on lovenox (6) Discharge planning issues Current Visit: Yes Status: Acute Plan to address problem: Patient will need SNF and son agrees about it.D/w son at length. History Interval history: Patient seen and examined today in no acute distress but still with bouts of tangictal thoughts and hallucination. She denies any chest pain, nausea or vomiting. Hospitalist Physical - Physical exam Narrative exam: VITAL SIGNS: Reviewed. GENERAL: The patient appeared well nourished and normally developed. Vital signs as documented. HEAD: No signs of head trauma. EYES: Pupils are equal. Extraocular motions intact. EARS: Hearing grossly intact. MOUTH: Oropharynx is normal. NECK: No adenopathy, no JVD. CHEST: Chest with clear breath sounds bilaterally. No wheezes, rales, or rhonchi. CARDIAC: Regular rate and rhythm. S1 and S2, without murmurs, gallops, or rubs. VASCULAR: No Edema. Peripheral pulses normal and equal in all extremities. ABDOMEN: Soft, without detectable tenderness. No sign of distention. No rebound or guarding, and no masses palpated. Bowel Sounds normal. MUSCULOSKELETAL: Good range of motion of all major joints. Extremities without clubbing, cyanosis or edema. NEUROLOGIC EXAM: Alert and oriented x 3. No focal sensory or strength deficits. Speech normal but with flight of ideas. Follows commands. PSYCHIATRIC: Mood irrational. SKIN: No rash or lesions. - Constitutional Vitals: Temp Pulse Resp BP Pulse Ox 98.1 F 107 H 97 H 164/84 100 12/23/16 07:00 12/23/16 07:00 12/23/16 07:00 12/23/16 07:00 12/22/16 23:00 General appearance: Present: no acute distress, well-nourished Results - Labs CBC & Chem 7: 12/22/16 03:18 12/23/16 07:31 Labs: Laboratory Last Values WBC 5.8 K/mm3 (4.5-11.0) 12/22/16 03:18 RBC 4.23 M/mm3 (3.65-5.03) 12/22/16 03:18 Hgb 12.5 gm/dl (10.1-14.3) 12/22/16 03:18 Hct 37.8 % (30.3-42.9) 12/22/16 03:18 MCV 89 fl (79-97) 12/22/16 03:18 MCH 30 pg (28-32) 12/22/16 03:18 MCHC 33 % (30-34) 12/22/16 03:18 RDW 15.8 % (13.2-15.2) H 12/22/16 03:18 Plt Count 280 K/mm3 (140-440) 12/22/16 03:18 Lymph % (Auto) 29.5 % (13.4-35.0) 12/22/16 03:18 [place] % (Auto) 10.5 % (0.0-7.3) H 12/22/16 03:18 Eos % (Auto) 2.1 % (0.0-4.3) 12/22/16 03:18 Baso % (Auto) 0.8 % (0.0-1.8) 12/22/16 03:18 Lymph # 1.7 K/mm3 (1.2-5.4) 12/22/16 03:18 [place] # 0.6 K/mm3 (0.0-0.8) 12/22/16 03:18 Eos # 0.1 K/mm3 (0.0-0.4) 12/22/16 03:18 Baso # 0.0 K/mm3 (0.0-0.1) 12/22/16 03:18 Seg Neutrophils % 57.1 % (40.0-70.0) 12/22/16 03:18 Seg Neutrophils # 3.3 K/mm3 (1.8-7.7) 12/22/16 03:18 Sodium 143 mmol/L (137-145) 12/23/16 07:31 Potassium 3.2 mmol/L (3.6-5.0) L 12/23/16 07:31 Chloride 105.3 mmol/L (98-107) 12/23/16 07:31 Carbon Dioxide 25 mmol/L (22-30) 12/23/16 07:31 Anion Gap 16 mmol/L 12/23/16 07:31 BUN 13 mg/dL (7-17) 12/23/16 07:31 Creatinine 0.8 mg/dL (0.7-1.2) 12/23/16 07:31 Estimated GFR > 60 ml/min 12/23/16 07:31 BUN/Creatinine Ratio 16.25 % 12/23/16 07:31 Glucose 122 mg/dL (65-100) H 12/23/16 07:31 Lactic Acid 0.70 mmol/L (0.7-2.0) 12/22/16 03:18 Calcium 9.2 mg/dL (8.4-10.2) 12/23/16 07:31 Magnesium 2.40 mg/dL (1.7-2.3) H 12/22/16 03:18 Total Bilirubin 0.20 mg/dL (0.1-1.2) 12/22/16 03:18 AST 44 units/L (5-40) H 12/22/16 03:18 ALT 25 units/L (7-56) 12/22/16 03:18 Alkaline Phosphatase 69 units/L (35-129) 12/22/16 03:18 Total Protein 8.2 g/dL (6.3-8.2) 12/22/16 03:18 Albumin 4.3 g/dL (3.9-5) 12/22/16 03:18 Albumin/Globulin Ratio 1.1 % 12/22/16 03:18 TSH 1.230 mlU/mL (0.270-4.200) 12/22/16 03:18 Urine Color Yellow (Yellow) 12/22/16 02:50 Urine Turbidity Clear (Clear) 12/22/16 02:50 Urine pH 5.0 (5.0-7.0) 12/22/16 02:50 Ur Specific [place] 1.029 (1.003-1.030) 12/22/16 02:50 Urine Protein 100 mg/dl mg/dL (Negative) 12/22/16 02:50 Urine Glucose (UA) Neg mg/dL (Negative) 12/22/16 02:50 Urine Ketones Tr mg/dL (Negative) 12/22/16 02:50 Urine Blood Neg (Negative) 12/22/16 02:50 Urine Nitrite Neg (Negative) 12/22/16 02:50 Urine Bilirubin Neg (Negative) 12/22/16 02:50 Urine Urobilinogen < 2.0 mg/dL (<2.0) 12/22/16 02:50 Ur Leukocyte Esterase Neg (Negative) 12/22/16 02:50 Urine WBC (Auto) 3.0 /HPF (0.0-6.0) 12/22/16 02:50 Urine RBC (Auto) 6.0 /HPF (0.0-6.0) 12/22/16 02:50 U Epithel Cells (Auto) 6.0 /HPF (0-13.0) 12/22/16 02:50 Urine Mucus Few /HPF 12/22/16 02:50 Salicylates 7.4 mg/dL (2.8-20.0) 12/22/16 03:18 Urine Opiates Screen Presumptive negative 12/22/16 02:50 Urine Methadone Screen Presumptive negative 12/22/16 02:50 Acetaminophen < 15.0 ug/mL (10.0-30.0) 12/22/16 03:18 Ur Barbiturates Screen Presumptive positive 12/22/16 02:50 Ur Phencyclidine Scrn Presumptive negative 12/22/16 02:50 Ur Amphetamines Screen Presumptive negative 12/22/16 02:50 U Benzodiazepines Scrn Presumptive negative 12/22/16 02:50 Urine Cocaine Screen Presumptive negative 12/22/16 02:50 U Marijuana (THC) Screen Presumptive negative 12/22/16 02:50 Drugs of Abuse Note Disclamer 12/22/16 02:50 Plasma/Serum Alcohol < 0.01 gm% (0-0.07) 12/22/16 03:18
[2016-12-23 15:33] VITALS: BP 127/81
[2016-12-23] MEDS ORDERED: LOVENOX SUB-Q SCH (22:00)
== END 2016-12-23 20:30 | DRG 885 ==
LOC: ED 02:05 → 3A 12:36
PROVIDERS: ADMIT Internal Medicine; ATTEND Internal Medicine
DX: F23 Brief psychotic disorder (principal); G93.49 Other encephalopathy; F02.81 Dementia in other diseases classified elsewhere, unspecified severity, with behavioral disturbance; E87.6 Hypokalemia; I10 Essential (primary) hypertension; F32.9 Major depressive disorder, single episode, unspecified; G47.00 Insomnia, unspecified
CPT/HCPCS: 36415; 70450; 80048; 80053; 80307; 80320; 81001; 82140; 83735; 84443; 85025; 93005; 93010; 96372; G0480; J1630; J1650; J3486

== ENCOUNTER 2017-03-05 00:44 | Emergency (ER) | payer MEDICARE ==
[2017-03-05] MEDS ORDERED: NORMODYNE IV ONE ×3 (01:10→04:29)
[2017-03-05] MEDS ORDERED: APRESOLINE IV ONE (07:33)
--- NOTE | 2017-03-05 07:34 | Emergency Department Report ---
HPI - General Chief Complaint: High BP Time Seen by Provider: 03/05/17 06:36 - HPI HPI: The patient is a 76-year-old female who presents for evaluation of mental health. The patient is accompanied by son and daughter who provides HPI. They report that the patient has exhibited hyper mormonism speech, agitation, and mood swings. They state that her symptoms have been severe and present for the past one to 2 days, on and off. The patient denies fever, headache, unexplained weight loss or weight gain, heat or cold intolerance, skin, hair, or nail changes, neuro deficits, homicidal ideations, or auditory or visual hallucinations. ED Past Medical Hx - Past Medical History Hx Hypertension: Yes Hx Asthma: No Hx COPD: No - Surgical History Additional Surgical History: colonoscopy. Resection of a rectal carcinoma - Social History Smoking Status: Never Smoker Substance Use Type: None - Medications Home Medications: Home Medications Medication Instructions Recorded Confirmed Last Taken Type Mirtazapine [Remeron] 7.5 mg PO QHS #30 tablet 12/23/16 03/05/17 Unknown Rx Donepezil [Aricept] 5 mg PO QHS 03/05/17 03/05/17 Unknown History Famotidine [Pepcid] 20 mg PO BID 03/05/17 03/05/17 Unknown History Latanoprost 0.005% [Xalatan 0.005%] 1 drop QHS 03/05/17 03/05/17 Unknown History Losartan [Cozaar] 50 mg PO DAILY 03/05/17 03/05/17 Unknown History risperiDONE [RisperiDONE] 1 mg PO QHS 03/05/17 03/05/17 Unknown History ED Review of Systems ROS: Stated complaint: HIGH BP/DEMENTIA Other details as noted in HPI Constitutional: denies: fever ENT: denies: throat or neck pain Respiratory: denies: cough, shortness of breath Cardiovascular: denies: chest pain Endocrine: denies unexplained weight loss or gain Gastrointestinal: denies: abdominal pain, nausea Genitourinary: denies: dysuria Musculoskeletal: denies: leg swelling Skin: denies: rash Neurological: denies: headache Hematological/Lymphatic: denies: easy bleeding or easy bruising Psych: denies sadness or hopelessness reports agitation (per son) Physical Exam - Physical Exam Vital Signs: Vital Signs 03/05/17 03/05/17 03/05/17 00:55 01:02 01:15 Temperature 98.4 F Pulse Rate 90 84 Respiratory 20 Rate Blood Pressure 194/104 Blood Pressure 194/04 [Right] O2 Sat by Pulse 99 98 99 Oximetry 03/05/17 03/05/17 03/05/17 01:30 01:45 02:00 Temperature Pulse Rate Respiratory Rate Blood Pressure 146/78 149/83 178/104 Blood Pressure [Right] O2 Sat by Pulse 98 97 97 Oximetry 03/05/17 03/05/17 03/05/17 02:15 02:31 02:45 Temperature Pulse Rate Respiratory Rate Blood Pressure 149/83 150/88 167/89 Blood Pressure [Right] O2 Sat by Pulse 99 98 98 Oximetry 03/05/17 03/05/17 03/05/17 03:00 03:15 04:05 Temperature Pulse Rate Respiratory Rate Blood Pressure 161/95 157/88 157/88 Blood Pressure [Right] O2 Sat by Pulse 96 97 Oximetry 03/05/17 03/05/17 03/05/17 04:15 04:30 04:45 Temperature Pulse Rate Respiratory Rate Blood Pressure 158/86 147/84 158/89 Blood Pressure [Right] O2 Sat by Pulse 99 98 100 Oximetry 03/05/17 03/05/17 05:01 05:15 Temperature Pulse Rate Respiratory Rate Blood Pressure 165/90 171/84 Blood Pressure [Right] O2 Sat by Pulse 99 100 Oximetry Physical Exam: General: well-nourished, well-developed, no acute distress Head: Normocephalic, atraumatic Eyes: normal sclera ENT: Mucous membranes are pink and moist Neck: trachea midline, neck supple, No neck stiffness, no cervical adenopathy Respiratory: Breath sounds equal bilaterally, no wheezing, rales, or rhonchi Cardio: S1 and S2 present, no murmurs, rubs, gallops, capillary refill is brisk Abdomen: Normoactive bowel sounds, soft abdomen, no rigidity, no guarding or rebound tenderness Musc: No pitting edema Skin: No rash Neuro: no facial drooping, normal speech Psych: Flat affect, poor insight, patient delusional, hyper-mormonism ED Course Vital Signs 03/05/17 03/05/17 03/05/17 00:55 01:02 01:15 Temperature 98.4 F Pulse Rate 90 84 Respiratory 20 Rate Blood Pressure 194/104 Blood Pressure 194/04 [Right] O2 Sat by Pulse 99 98 99 Oximetry 03/05/17 03/05/17 03/05/17 01:30 01:45 02:00 Temperature Pulse Rate Respiratory Rate Blood Pressure 146/78 149/83 178/104 Blood Pressure [Right] O2 Sat by Pulse 98 97 97 Oximetry 03/05/17 03/05/17 03/05/17 02:15 02:31 02:45 Temperature Pulse Rate Respiratory Rate Blood Pressure 149/83 150/88 167/89 Blood Pressure [Right] O2 Sat by Pulse 99 98 98 Oximetry 03/05/17 03/05/17 03/05/17 03:00 03:15 04:05 Temperature Pulse Rate Respiratory Rate Blood Pressure 161/95 157/88 157/88 Blood Pressure [Right] O2 Sat by Pulse 96 97 Oximetry 03/05/17 03/05/17 03/05/17 04:15 04:30 04:45 Temperature Pulse Rate Respiratory Rate Blood Pressure 158/86 147/84 158/89 Blood Pressure [Right] O2 Sat by Pulse 99 98 100 Oximetry 03/05/17 03/05/17 05:01 05:15 Temperature Pulse Rate Respiratory Rate Blood Pressure 165/90 171/84 Blood Pressure [Right] O2 Sat by Pulse 99 100 Oximetry ED Medical Decision Making - Medical Decision Making The patient was seen and examined by myself. The patient is placed on a rand maker and continuous pulse ox. On initial evaluation, the patient was found to be in no distress. Labs are obtained. The patient is given multiple doses of IV labetalol and hydralzine for treatment of elevated blood pressure. Lab results are grossly unremarkable. The patient is medically clear. Mental health is consulted. Mental health evaluates the patient and agrees that the patient is exhibiting symptoms consistent with acute psychosis. A 1013 is completed. The patient will be admitted to a psychiatric facility once bed placement is obtained. Critical care attestation.: If time is entered above; I have spent that time in minutes in the direct care of this critically ill patient, excluding procedure time. ED Disposition Clinical Impression: Hypertensive urgency, Acute psychosis Disposition: DC/TX-65 PSY HOSP/PSY UNIT Is pt being admited?: No Does the pt Need Aspirin: No Condition: Stable Instructions: Hypertension (ED) Referrals: PRIMARY CARE, [Primary Care Provider] - 3-5 Days Time of Disposition: 07:33
[2017-03-05] MEDS ORDERED: TYLENOL PO PRN (13:05)
[2017-03-05] MEDS ORDERED: ALUM-MAG HYDROX-SIMETH 200-200-20MG/5ML PO PRN (13:05)
[2017-03-05] MEDS ORDERED: MILK OF MAGNESIA PO PRN (13:05)
[2017-03-05 17:20] VITALS: BP 165/96
== END 2017-03-05 17:20 ==
LOC: ED 00:44
DX: F23 Brief psychotic disorder (principal); I10 Essential (primary) hypertension
CPT/HCPCS: 93005; 93010; 96374; 96375; 99285; J0360

== ENCOUNTER 2017-07-22 18:37 | Emergency (ER) | payer MEDICARE ==
[2017-07-22] MEDS ORDERED: CATAPRES ONE (22:13)
[2017-07-22] MEDS ORDERED: CATAPRES PO ONE (22:19)
--- NOTE | 2017-07-23 02:17 | Emergency Department Report ---
HPI - General Chief Complaint: High BP Time Seen by Provider: 07/23/17 02:06 - HPI HPI: The patient is a 76-year-old female who presents for evaluation of elevated blood pressure. The patient, family members report elevated blood pressure throughout the past day. The report a blood pressure excised to 238/110. The patient only complains of some mild lightheadedness, exacerbated with position changes, improved at rest, also for the past one day, but completely resolved on my initial evaluation. The patient denies fever, headache, neck pain, paresthesias, focal motor weakness, blurry vision, ear pain, tinnitus, chest pain, hemoptysis, dyspnea, abdominal pain, confusion or altered mental status, or recent URI or diarrhea. ED Past Medical Hx - Past Medical History Hx Hypertension: Yes Hx Psychiatric Treatment: Yes (psychosis, depression) Hx Asthma: No Hx COPD: No Hx Dementia: Yes Additional medical history: [place] of state, glaucoma - Surgical History Additional Surgical History: colonoscopy. Resection of a rectal carcinoma - Social History Smoking Status: Never Smoker Substance Use Type: None - Medications Home Medications: Home Medications Medication Instructions Recorded Confirmed Last Taken Type Latanoprost 0.005% [Xalatan 0.005%] 1 drop QHS 03/05/17 06/27/17 Unknown History Donepezil [Aricept] 5 mg PO QHS #30 tablet 06/27/17 Unknown Rx Famotidine [Pepcid] 20 mg PO BID #30 tablet 06/27/17 Unknown Rx Losartan [Cozaar] 50 mg PO DAILY #30 tablet 06/27/17 Unknown Rx Mirtazapine [Remeron] 7.5 mg PO QHS #30 tablet 06/27/17 Unknown Rx risperiDONE [RisperiDONE] 1 mg PO QHS #14 tablet 06/27/17 Unknown Rx Hydrochlorothiazide [HCTZ] 25 mg PO QDAY #30 tablet 07/23/17 Unknown Rx ED Review of Systems ROS: Stated complaint: HBP Other details as noted in HPI Constitutional: denies: fever ENT: denies: throat or neck pain Respiratory: denies: cough, shortness of breath Cardiovascular: denies: chest pain Endocrine: denies unexplained weight loss or gain Gastrointestinal: denies: abdominal pain, nausea Genitourinary: denies: dysuria Musculoskeletal: denies: leg swelling Skin: denies: rash Neurological: denies: headache Hematological/Lymphatic: denies: easy bleeding or easy bruising Psych: denies sadness or hopelessness Physical Exam - Physical Exam Vital Signs: Vital Signs 07/22/17 07/22/17 07/22/17 22:00 22:19 23:33 Temperature 98.3 F Pulse Rate 72 72 79 Respiratory 16 16 Rate Blood Pressure 217/109 Blood Pressure 217/109 138/93 [Left] O2 Sat by Pulse 98 Oximetry Physical Exam: General: well-nourished, well-developed, no acute distress Head: Normocephalic, atraumatic Eyes: normal sclera ENT: Mucous membranes are pink and moist Neck: trachea midline, neck supple, No neck stiffness, no cervical adenopathy Respiratory: Breath sounds equal bilaterally, no wheezing, rales, or rhonchi Cardio: S1 and S2 present, no murmurs, rubs, gallops, capillary refill is brisk Abdomen: Normoactive bowel sounds, soft abdomen, no rigidity, no guarding or rebound tenderness Chest WALL/Back: No tenderness to palpation of the chest wall, no CVA tenderness with percussion Musc: No pitting edema Skin: No rash Neuro: no facial drooping, normal speech Psych: Normal affect ED Course Vital Signs 07/22/17 07/22/17 07/22/17 22:00 22:19 23:33 Temperature 98.3 F Pulse Rate 72 72 79 Respiratory 16 16 Rate Blood Pressure 217/109 Blood Pressure 217/109 138/93 [Left] O2 Sat by Pulse 98 Oximetry ED Medical Decision Making - Lab Data Result diagrams: 07/23/17 02:47 07/23/17 02:47 - Medical Decision Making The patient was seen and examined by myself. The patient is placed on a cardiac care nurse and continuous pulse ox. On initial evaluation, the patient was found to be in no distress. Evaluation orders were placed. The patient is given IV labetalol for her elevated blood pressure. Lab results are unremarkable. On reexamination the patient's blood pressure was found to decrease outside of range concerning for hypertensive emergency. The patient is stable for discharge with outpatient follow-up. The patient is given follow-up and return instructions. The patient expressed understanding and agreed with the plan. The patient is discharged in stable condition. Critical care attestation.: If time is entered above; I have spent that time in minutes in the direct care of this critically ill patient, excluding procedure time. ED Disposition Clinical Impression: Hypertensive urgency Disposition: DC-01 TO HOME OR SELFCARE Is pt being admited?: No Does the pt Need Aspirin: No Condition: Stable Instructions: Chronic Hypertension (ED), Hypertension (ED) Prescriptions: Hydrochlorothiazide [HCTZ] 25 mg PO QDAY #30 tablet Referrals: CHAYO NOBLE MD [Primary Care Provider] - 3-5 Days Time of Disposition: 02:16
[2017-07-23] MEDS ORDERED: NORMODYNE IV ONE (02:38)
[2017-07-23 02:49] VITALS: BP 167/102
[2017-07-23 03:01] LABS: Bacteria,Urine 3+ /HPF (Negative); Bilirubin,Urine NEG (Negative); Blood,Urine NEG (Negative); Color,Urine Red (Yellow); Nitrite,Urine NEG (Negative); Protein,Urine <15 mg/dL mg/dL (Negative); Urobilinogen,Urine < 2.0 mg/dL (<2.0); WBC,Urine < 1.0 /HPF (0.0-6.0)
[2017-07-23 03:08] LABS: Basophils % (Auto) 0.5 % (0.0-1.8); Eosinophils # (Auto) 0.1 K/mm3 (0.0-0.4); Eosinophils % (Auto) 1.6 % (0.0-4.3); Hematocrit 38.4 % (30.3-42.9); Hemoglobin 12.9 gm/dl (10.1-14.3); Lymphocytes # (Auto) 1.7 K/mm3 (1.2-5.4); Lymphocytes % (Auto) 27.1 % (13.4-35.0); Mean Corpuscular HGB Conc 34 % (30-34); Mean Corpuscular Hemoglobin 30 pg (28-32); Mean Corpuscular Volume 90 fl (79-97); Monocytes # (Auto) 0.6 K/mm3 (0.0-0.8); Platelet Count 243 K/mm3 (140-440); Red Blood Count 4.27 M/mm3 (3.65-5.03); Red Cell Distribution Width 15.9 % (13.2-15.2)
[2017-07-23 03:17] LABS: Amphetamine Screen,Urine PRESUMPTIVE NEGATIVE; Benzodiazepines Screen,Urine PRESUMPTIVE NEGATIVE; Cannabinoid Screen,Urine PRESUMPTIVE NEGATIVE; Cocaine Screen,Urine PRESUMPTIVE NEGATIVE; Methadone Screen,Urine PRESUMPTIVE NEGATIVE; Opiate Screen,Urine PRESUMPTIVE NEGATIVE
[2017-07-23 03:32] LABS: BUN/Creatinine Ratio 11; Blood Urea Nitrogen 10 mg/dL (7-17); Calcium 8.7 mg/dL (8.4-10.2); Hemolysis Index 6
== END 2017-07-23 04:17 | disposition home or self-care (01) ==
LOC: ED 18:37
DX: I16.0 Hypertensive urgency (principal); I10 Essential (primary) hypertension
CPT/HCPCS: 36415; 80048; 80307; 81001; 85025; 96374; 99284; G0480; 80320